=== PATIENT | female | born 1995 | race Caucasian/White ===

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

== ENCOUNTER 2017-02-22 20:10 | Emergency (ER) | payer OTHER ==
[~2017-02-22] VITALS: Ht 149.9 cm; Wt 50.8 kg
[2017-02-22 20:17] VITALS: BP 104/66
== END 2017-02-22 22:55 ==
LOC: ED 22:48
DX: O99.512 Diseases of the respiratory system complicating pregnancy, second trimester (principal); J06.9 Acute upper respiratory infection, unspecified; O99.89 Other specified diseases and conditions complicating pregnancy, childbirth and the puerperium; M54.9 Dorsalgia, unspecified; Z3A.19 19 weeks gestation of pregnancy
CPT/HCPCS: 99281

== ENCOUNTER 2017-02-22 22:33 | Outpatient (CLI) | payer SELFPAY ==
[2017-02-23 00:17] LABS: PATH.CAST-FLAG NOT PRESENT; SPERM-FLAG NOT PRESENT; SRC-FLAG NOT PRESENT; XTAL-FLAG NOT PRESENT; YLC-FLAG NOT PRESENT
[2017-02-23] MEDS ORDERED: NITROFURANTOIN (MACROBID) 100 MG CAPSULE ONE (00:45)
[2017-02-23] MEDS ORDERED: NITROFURANTOIN (MACROBID) 100 MG CAPSULE PO ONE (01:00)
== END 2017-02-23 01:21 | disposition home or self-care (01) ==
LOC: LDOP 22:33
PROVIDERS: ATTEND Obstetrics & Gynecology
DX: O26.892 Other specified pregnancy related conditions, second trimester (principal); M54.9 Dorsalgia, unspecified; Z3A.19 19 weeks gestation of pregnancy
CPT/HCPCS: 59025; 81001; 87086; 99211; G0463

== ENCOUNTER 2017-04-29 23:21 | Outpatient (CLI) | payer MEDICAID ==
[~2017-04-29] VITALS: Ht 149.9 cm; Wt 55.9 kg
[2017-04-29 23:48] LABS: MICROSCOPIC AUTO
[2017-04-29 23:58] LABS: AMPHETAMINE SCREEN, URINE Negative (Negative); BARBITURATE SCREEN, URINE Negative (Negative); BENZODIAZEPINE SCREEN, URINE Negative (Negative); CANNABINOID SCREEN, URINE Negative (Negative); COCAINE SCREEN, URINE Negative (Negative); METHADONE SCREEN, URINE Negative (Negative); OPIATE SCREEN, URINE Negative (Negative)
== END 2017-04-30 00:27 | disposition home or self-care (01) ==
LOC: LDOP 23:21
PROVIDERS: ATTEND Obstetrics & Gynecology
DX: Z34.83 Encounter for supervision of other normal pregnancy, third trimester (principal); Z3A.28 28 weeks gestation of pregnancy
CPT/HCPCS: 59025; 80307; 81001; 87086; 99211; G0463

== ENCOUNTER → 2017-04-30 | Outpatient (CLI) | payer MEDICAID | END | disposition home or self-care (01) | LOC: CFH 11:41 | PROVIDERS: ATTEND Obstetrics & Gynecology | DX: O23.00 Infections of kidney in pregnancy, unspecified trimester (principal); N13.6 Pyonephrosis; Z3A.00 Weeks of gestation of pregnancy not specified | CPT/HCPCS: 76770 ==